=== PATIENT | male | born 1950 ===

== ENCOUNTER 2025-05-25 15:44 | Outpatient (CLI) | payer SELFPAY ==
[2025-05-25 16:58] LABS: Glucose Urine UA Negative (Normal); Nitrate Urine Negative (Negative); Specific Gravity, Urine 1.012 (1.005-1.030)
[2025-05-25 17:03] LABS: Add Urine Microscopic? YES; Universal Test for UA Present (0)
[2025-05-25 17:20] LABS: UA Slide Review UA Slide Review Perf
== END 2025-05-25 15:45 | disposition home or self-care (01) ==
PROVIDERS: Absent Provider Family Medicine Geriatric Medicine; Visit Provider Family Medicine Geriatric Medicine
DX: R33.8 Other retention of urine (principal)
CPT/HCPCS: 81001